=== PATIENT | male | born 1965 | race Caucasian/White ===

== ENCOUNTER 2020-06-26 18:30 | Emergency (ER) | payer OTHER ==
[~2020-06-26] VITALS: Ht 177.8 cm; Wt 94.7 kg
[2020-06-26] MEDS ORDERED: HYDROcodone/APAP 5/325MG 1 TAB TABLET PO ONE (19:00)
[2020-06-26] MEDS ORDERED: CYCLOBENZAPRINE 10 MG TABLET. PO ONE (19:00)
[2020-06-26] MEDS ORDERED: methylPREDNISolone ACETATE 80 MG/ML VIAL. IM ONE (19:00)
[2020-06-26] MEDS ORDERED: CYCL-331 PO (19:12)
[2020-06-26] MEDS ORDERED: PRED20TA PO (19:12)
[2020-06-26] MEDS ORDERED: HYDR-2155 PO (19:12)
--- NOTE | 2020-06-26 19:16 | PHYS DOC ---
Past History Past Medical History: No Pertinent History (CHITO BURCH APRN) Past Surgical History: Other Additional Past Surgical Histo: lower GI scope (CHITO BURCH APRN) Alcohol Use: None (CHITO BURCH APRN) Adult General Chief Complaint Chief Complaint: HIP PAIN HPI HPI Patient is a 55-year-old male presents to the emergency department complaining of left sided buttocks pain that travels to his left proximal thigh area this started after "throwing my back out lifting weights "this past Sunday. Patient reports a pain of 10/10 on a 1-10 pain scale initially. 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 Patient states that his pain did come down to a 3/10 pain when he took his meloxicam along with 500 mg of acetaminophen [id number] p.o. Patient states that in a standing position when he is not moving his pain is a 3/10. However increases to almost a 10/10 when he goes from a standing to a sitting position or from a sitting to a standing position. Patient denies any numbness or tingling to his buttocks or low back area or lower extremities. Patient denies any loss of bowel or bladder control. Patient denies any allergies to medications, states his only prescription medication is 15 mg meloxicam every morning. Patient's primary care is the [facility]. Patient denies any other physical complaints or physical concerns. (CHITO BURCH APRN) Review of Systems Review of Systems 14 body systems of review of systems have been reviewed. See HPI for pertinent positives and negative responses, otherwise all other systems are negative, nonpertinent or noncontributory. (CHITO BURCH APRN) Current Medications Current Medications 15 mg meloxicam every morning (CHITO BURCH APRN) Physical Exam Physical Exam Constitutional: Well developed, well nourished, no acute distress, non-toxic appearance. 55-year-old male no apparent distress. HENT: Normocephalic, atraumatic, bilateral external ears normal, oropharynx moist, no oral exudates, nose normal. Oropharynx moist, pink, no deep tissue infectious process appreciated, bilateral TMs within normal limits, no lymphadenopathy of the head and neck appreciated. No drooling, no trismus appreciated. Eyes: PERRLA, EOMI, conjunctiva normal, no discharge. Neck: Normal range of motion, no tenderness, supple, no stridor. Cardiovascular:Heart rate regular rhythm, no murmur, heart sounds S1-S2 to auscultation. Lungs & Thorax: Bilateral breath sounds clear to auscultation no adventitious lung sounds appreciated. Abdomen: Bowel sounds normal, soft, no tenderness, no masses, no pulsatile masses. Skin: Warm, dry, no erythema, no rash. Back: No tenderness, no CVA tenderness. Extremities: No tenderness, no cyanosis, no clubbing, ROM intact, no edema. Pain to palpation left center buttocks area with radiation of pain to left proximal lateral thigh. No bruising appreciated. No loss of sensation. Distal cap refill less than 2 seconds. Neurologic: Alert and oriented X 3, normal motor function, normal sensory function, no focal deficits noted. Psychologic: Affect normal, judgement normal, mood normal. (CHITO BURCH APRN) Current Patient Data Vital Signs Vital Signs Date Time Temp Pulse Resp B/P (MAP) Pulse Ox O2 Delivery O2 Flow Rate FiO2 06/26/20 18:44 98.1 68 16 139/87 (104) 97 Room Air (CHITO BURCH APRN) EKG EKG [] (CHITO BURCH APRN) Radiology/Procedures Radiology/Procedures [] (CHITO BURCH APRN) Heart Score C/O Chest Pain: No Risk Factors: Risk Factors: DM, Current or recent (<one month) smoker, HTN, HLP, family history of CAD, obesity. Risk Scores: Risk Factors: DM, Current or recent (<one month) smoker, HTN, HLP, family history of CAD, obesity. (CHITO BURCH APRN) Course & Med Decision Making Course & Med Decision Making Pertinent Labs and Imaging studies reviewed. (See chart for details) 55-year-old male, vital signs reviewed, presents emergency department with complaints of left buttocks pain with radiation to the left lateral thigh after pulling a muscle during weight training exercise this past Sunday. Patient did find some relief with his plantar fasciitis medication meloxicam 15 mg every morning, however patient complains of debilitating pain when he goes from a standing position to a sitting position from a sitting position to a standing position. Physical examination consistent with sciatica flareup with muscle strain. Patient does have muscle spasm to left buttocks area. Discussed with patient indicated joint decision that imaging not indicated as patient did not have a traumatic event. We will treat with p.o. muscle relaxer Flexeril, IM 80 mg Depo-Medrol, will give p.o. prednisone for 5 days 20 mg, prescription for 5/325 hydrocodone. Patient gave verbal understanding of discharge home instructions, follow-up with PCP for ongoing pain management, return return to emergency department precautions and concerns, patient was thankful had no further questions and was discharged home without incident. (CHITO BURCH APRN) Course & Med Decision Making Did not see or evaluate patient. Agree with NETWORK DIRECTOR's work-up and disposition per note. (MARIESL NOYOLA MD) Dragon Disclaimer Dragon Disclaimer This electronic medical record was generated, in whole or in part, using a voice recognition dictation system. (CHITO BURCH APRN) Departure Departure: Impression: Primary Impression: Left sided sciatica Additional Impression: Left buttock pain Disposition: HOME / SELF CARE / HOMELESS Condition: GOOD Referrals: NON,STAFF (PCP) Patient Instructions: Sciatica Additional Instructions: You are seen today in the emergency department for left-sided buttock pain that started after weightlifting exercises this past Sunday. Your physical exam was consistent with sciatica type pain. You did have a significant muscle spasm in your left buttock I have treated you today in the emergency department with a steroid 80 mg of Depo-Medrol and a muscle relaxer 10 mg Flexeril, and 1 tablet of 5/325 hydrocodone. You have already taken meloxicam, is not recommended to take anymore NSAIDs on top of this medication daily. As we discussed, I am prescribing you additional prednisone 20 mg to take once a day for the next 5 days, I am also prescribing you Flexeril to take 3 times a day as needed for muscle spasm and pain, I am also prescribing you 15 tablets of [place] to take for extreme breakthrough pain. Please continue to take your morning dose of meloxicam as directed by your paddle dyeing machine operator. Please follow-up with your primary care doctor at the [facility] for ongoing chronic pain, return to the emergency department for worsening symptoms or other concerns. EMERGENCY DEPARTMENT GENERAL DISCHARGE INSTRUCTIONS Thank you for coming to [facility] (ED) today and trusting us with you care. We trust that you had a positivie experience in our Emergency Department. If you wish to speak to the department management, you may call the director at . YOUR FOLLOW UP INSTRUCTIONS ARE FOLLOWS: 1. Do you have a private Doctor? If you do not have a private doctor, please ask for a resource list of physicians or clinics that may be able to assist you with follow up care. 2. The Emergency Physician has interpreted your x-rays. The X-Ray specialist will also review them. If there is a change in the findings, you will be notified in 48 hours when at all possible. 3. A lab test or culture has been done, your results will be reviewed and you will be notified if you need a change in treatment. ADDITIONAL INSTRUCTIONS AND INFORMATION: 1. Your care today has been supervised by a physician who is specially trained in emergency care. Many problems require more than one evaluation for a complete diagnosis and treatment. We recommend that you schedule your follow up appointment as recommended to ensure complete treatment of you illness or injury. If you are unable to obtain follow up care and continue to have a problem, or if your condition worsens, we recommend that you return to the ED. 2. We are not able to safely determine your condition over the phone nor are we able to give sound medical advice over the phone. For these safety reasons, if you call for medical advice we will ask you to come to the ED for further evaluation. 3. If you have any questions regarding these discharge instructions please call the ED at [phone]. SAFETY INFORMATION: In the interest of safety, wellness, and injury prevention; we encourage you to wear your sealbelt, if you smoke; quite smoking, and we encourage family to use a protective helmet for bicycling and other sporting events that present an increased risk for head injury. IF YOUR SYMPTOMS WORSEN OR NEW SYMPTOMS DEVELOP, OR YOU HAVE CONCERNS ABOUT YOUR CONDITION; OR IF YOUR CONDITION WORSENS WHILE YOU ARE WAITING FOR YOUR FOLLOW UP APPOINTMENT; EITHER CONTACT YOUR PRIMARY CARE DOCTOR, THE PHYSICIAN WHOSE NAME AND NUMBER YOU WERE GIVEN, OR RETURN TO THE ED IMMEDIATELY. Scripts Hydrocodone Bit/Acetaminophen (HYDROCODONE-APAP 5-325 ) 1 Each Tablet 1 TAB PO PRN Q6HRS PRN for SEVERE PAIN, #15 TAB 0 Refills Prov: CHITO BURCH APRN 06/26/20 Cyclobenzaprine Hcl (CYCLOBENZAPRINE HCL) 10 Mg Tablet 1 TAB PO TID PRN PRN for PAIN, #12 TAB 0 Refills Prov: CHITO BURCH APRN 06/26/20 Prednisone (PREDNISONE) 20 Mg Tablet 1 TAB PO DAILY for SCIATICA FLARE UP for 5 Days, #5 TAB 0 Refills Prov: CHITO BURCH APRN 06/26/20 Problem Qualifiers CHITO BURCH APRN June 26, 2020 19:15 MARISEL NOYOLA MD June 26, 2020 20:04
[2020-06-26 19:20] VITALS: BP 130/78
== END 2020-06-26 19:26 | disposition home or self-care (01) ==
LOC: ER 18:30
DX: M79.659 Pain in unspecified thigh (principal); M54.32 Sciatica, left side
CPT/HCPCS: 96372; 99283; J1040